=== PATIENT | female | born 1980 | race Caucasian/White ===

== ENCOUNTER 2024-07-30 09:06 | Outpatient (CLI) | payer OTHER, SELFPAY ==
--- NOTE | 2024-07-30 09:09 | MR_ITS ---
WS: [id number] MRI RIGHT KNEE NONCONTRAST TECHNIQUE: Axial PD, coronal PD fat sat, coronal PD, sagittal PD, and sagittal PD fat-sat images obta ined. CLINICAL INFORMATION: PAIN IN R KNEE COMPARISON: None. FINDINGS: Distal quadriceps and patella tendons are intact. Hypertrophic patella. Normal ACL and PCL. Mild tric ompartmental arthritis. Tiny horizontal tear in the posterior horn medial meniscus extending to the articular surface. Normal lateral meniscus. Medial and lateral collateral ligaments are intact. Moderate chondromalacia patell a. Slight chondral fissuring in the lateral patellar facet. Grade II chondromalacia medial and latera l joint compartments. Normal popliteal fossa. MR/MR knee RT wo con* [id number] IMPRESSION: 1. Small horizontal tear involving the posterior horn medial meniscus. 2. Normal ACL and PCL. 3. Medial and lateral collateral ligaments are intact. 4. Moderate chondromalacia patella with fissuring involving the lateral patell ar facet. 5. Small joint effusion. 6. No other acute findings. Outbridge grading:
== END 2024-07-30 09:07 | disposition home or self-care (01) ==
LOC: RAD 09:07
PROVIDERS: PCP Family Medicine; Visit Provider Family Medicine
DX: M23.221 Derangement of posterior horn of medial meniscus due to old tear or injury, right knee (principal); M22.41 Chondromalacia patellae, right knee
CPT/HCPCS: 73721

== ENCOUNTER 2024-10-09 16:03 | Outpatient (RCR) | payer OTHER, SELFPAY | END 2024-11-02 23:59 | disposition home or self-care (01) | LOC: SPT 16:03 | PROVIDERS: Visit Provider Physician Assistant | DX: S89.91XA Unspecified injury of right lower leg, initial encounter (principal); X58.XXXA Exposure to other specified factors, initial encounter | CPT/HCPCS: 97110; 97161 ==

== ENCOUNTER 2024-11-03 06:00 | Outpatient (RCR) | payer OTHER, SELFPAY | END 2024-11-30 23:59 | disposition home or self-care (01) | LOC: SPT 06:00 | PROVIDERS: Visit Provider Physician Assistant | DX: M25.561 Pain in right knee (principal); R26.89 Other abnormalities of gait and mobility | CPT/HCPCS: 97110 ==

== ENCOUNTER 2025-05-02 18:34 | Emergency (ER) | payer OTHER, SELFPAY ==
--- NOTE | 2025-05-02 18:38 | ECG_ITS ---
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: : 1980 Requested By: Teena Lyons Order Number: [id number] Fern MD: ANNABELLE RAHMAN Measurements Intervals [place] Rate: 82 P: 31 OR: 144 QRS: 12 QRSD: 77 T: 1 QT: 368 QTc: 432 Interpretive Statements SINUS RHYTHM POSSIBLE LEFT ATRIAL ENLARGEMENT [-0.1mV P-WAVE IN V1/V2] LOW QRS VOLTAGE IN PRECORDIAL LEADS [QRS DEFLECTION < 1.0 mV IN CHEST LEADS] SEPTAL MYOCARDIAL INFARCTION , OF INDETERMINATE AGE [40+ ms Q WAVE IN V1/V2] No previous ECG available for comparison Electronically Signed On 05-02-2025 22:17:06 CDT by ANNABELLE RAHMAN [email or web address]
[2025-05-02 18:39] VITALS: BP 156/94; PULSE 74; RESP 16; TEMP 36.7; O2SAT 99; BMI 39.1
--- NOTE | 2025-05-02 19:55 | ED_ITS ---
HPI - Chest Pain 2 General: Chief Complaint: Chest Pain Stated Complaint: chest pain, headache Time Seen by Provider: 05/02/25 19:54 History of Present Illness: 45-year-old female with a history of hyp ertension and obesity who presents emergency room with chest pain. She said about 1:00 this afternoon she started having some pressure in her left chest. A squeezing. Radiates into her left shoulder. She had a similar brief episode of this in the past but did not seek attention at that time. Said her blood pressure was slightly elevated at home. On presentation here is elevated still at 156/94. Related Data Previous Rx's ?Medication ?Instructions ?Recorded albuterol sulfate 2.5 mg/3 mL 2.5 mg (3 mL) inhalation QID PRN 10/04/21 (0.083 %) solution for nebulization shortness of breat h or wheezing #75 mL prednisone 20 mg tablet 40 mg (2 x 20 mg) PO DAILY 5 days 10/04/21 #10 tabs doxycycline hyclate 100 mg capsule 100 mg PO BID #20 c aps 04/07/22 Allergies Allergy/AdvReac Type Severity Reaction Status Date / Time Penicillins Allergy ALGY-Anaphy Verified 04/07/22 09:18 laxis Review of Systems 2 Narrative: Constitutional symptoms: Negative except as documented in HPI. Skin symptoms: Negative except as documented in HPI. Eye symptoms: Negative except as documented in HPI. ENMT symptoms: Negative except as documented in HPI. Respiratory symptoms: Negative except as documented in HPI. Cardiovascular symptoms: Negative except as documented in HPI. Gastrointestinal symptoms: Negative except as documented in HPI. Genitourinary symptoms: Negative except as documented in HPI. Musculoskeletal symptoms: Negative except as documented in HPI. Neurologic symptoms: Negative except as documented in HPI. Psychiatric symptoms: Negative except as documented in HPI. Endocrine symptoms: Negative except as documented in HPI. PFSH ED 2 PFSH: Medical History (Updated 05/02/25 @ 23:16 by Teena Vasquez MD) Recurrent UTI Chronic interstitial cystitis Surgical History Hx of dilation and curettage Hx of cholecystectomy Family History Father Healthy adult Mother Healthy adult Social History (Reviewed 04/07/22 @ 12:17 by PAWEL Sawant Smoking and tobacco/nicotine status: never used tobacco/nicotine Alcohol intake: never Substance/Drug Use: never Marital status: Current occupational status: employed Physical Exam 2 Narrative: EXAM NARRATIVE: General: Alert, no acute distress. Skin: Warm, dry. Head: Normocephalic, atraumatic. Neck: Supple, trachea midline. Eye: Extraocular movements are intact. Ears, nose, mouth and throat: mucosa moist. Cardiovascular: Regular, Normal peripheral perfusion. Respiratory: Lungs are clear to auscultation, respirations are non-labored, breath sounds are equal, Symmetrical chest wall expansion. Gastrointestinal: Soft, Nontender, Non distended Musculoskeletal: Normal ROM, no deformity. Neurological: Alert and oriented, No focal neurological deficit observed. Psychiatric: Cooperative, appropriate mood & affect. Course 2 Vital Signs: Vital signs: Vital Signs Temperature 98.0 F 05/02/25 18:39 Pulse Rate 66 05/02/25 23:00 Respiratory Rate 18 05/02/25 23:00 Blood Pressure 137/76 05/02/25 23:00 Pulse Oximetry 99 05/02/25 23:00 Oxygen Delivery Me thod Room Air 05/02/25 23:00 MDM - Chest Pain Medical Decision Making Differential diagnosis for patient with chest pain includes but is not limited to and based on the above HPI, review of systems and physical exam: Pneumonia. unstable angina. angina. Acute coronary syndrome / IA. Pulmonary embolism. Costochondritis / musculoskeletal. Pleurisy. Pericarditis. Esophageal spasm. Pancreatis. Cholecystitis. Orders placed to evaluate differential diagnosis based on the above differential, HPI and physical exam EKG: Time 183. Rate 82. Normal sinus rhythm, nonspecific ST changes, no ectopy, normal KS & QRS intervals, This was reviewed and interpreted by myself the ER physician at 1845 Chest x-ray: No acute process. No infiltrate. No pneumothorax. This was reviewed and interpreted by myself the emergency room physician. I also reviewed the radiology report. Lab Review: Laboratory results were reviewed and interpreted by myself the emergency room physician. No leukocytosis. No anemia. No renal failure. Serial troponins are negative. I reviewed the patient's medical record. Reexamination: Patient remained stable. No increased work of breathing. No altered mental status. No focal motor deficits. She tells me she does have an appointment with cardiology for tomorrow. Assessment and plan: Noncardiac chest pain - Discharged home - Discussed plan with patient. Answered any questions. - Evaluation and treatment of this problem were appropriate in the emergency setting. Lab Data 05/02/25 20:19 05/02/25 20:19 Radiology Impressions Chest X-Ray 05/02/25 20:30 IMPRESSION: No acute findings. Laboratory Results WBC 9.62 10^3/uL (3.29-11.43) 05/02/25 20:19 RBC 4.29 10^6/uL (3.85-5.65) 05/02/25 20:19 Hgb 12.80 g/dL (11.27-16.99) 05/02/25 20:19 Hct 39.1 % (36-47) 05/02/25 20:19 MCV 91.1 fl (85-98) 05/02/25 20:19 MCH 29.8 pg (27-33) 05/02/25 20:19 MCHC 32.7 g/dL (30-55) 05/02/25 20:19 RDW 12.3 % (12.1-15.1) 05/02/25 20:19 Plt Count 219 10^3/cmm (157-399) 05/02/25 20:19 MPV 11.2 fL (7.4-10.4) H 05/02/25 20:19 Neut % (Auto) 60.7 % 05/02/25 20:19 Lymph % (Auto) 31.0 % 05/02/25 20:19 [place] % (Auto) 4.8 % 05/02/25 20:19 Eos % (Auto) 2.4 % 05/02/25 20:19 Baso % (Auto) 0.7 % 05/02/25 20:19 Neut # (Auto) 5.84 10^3/uL (1.8-7.7) 05/02/25 20:19 Lymph # (Auto) 3.0 10^3/uL (0.8-4.8) 05/02/25 20:19 [place] # (Auto) 0.5 10^3/uL (0.2-0.9) 05/02/25 20:19 Eos # (Auto) 0.2 10^3/uL (0.0-0.8) 05/02/25 20:19 Baso # (Auto) 0.1 10^3/uL (0.0-0.1) 05/02/25 20:19 Nucleated RBC % (auto) 0 % 05/02/25 20:19 Nucleated RBCs # 0.0 /100WBC 05/02/25 20:19 Sodium 141 mmol/L (136-145) 05/02/25 20:19 Potassium 4.1 mmol/L (3.5-5.1) 05/02/25 20:19 Chloride 102 mmol/L (98-107) 05/02/25 20:19 Carbon Dioxide 27 mmol/L (22-29) 05/02/25 20:19 Anion Gap 16.1 (5-19) 05/02/25 20:19 BUN 14 mg/dL (6-20) 05/02/25 20:19 Creatinine 0.7 mg/dL (0.5-0.9) 05/02/25 20:19 GFR Calculation 89.7 mL/min (90-130) L 05/02/25 20:19 Glucose 93 mg/dL (65-115) 05/02/25 20:19 Calculated Osmolality 292 mOsm/kg (285-295) 05/02/25 20:19 Calcium 9.6 mg/dL (8.5-10.5) 05/02/25 20:19 Total Bilirubin 0.5 mg/dL (0.15-1.2) 05/02/25 20:19 AST 23 U/L (0-32) 05/02/25 20:19 ALT 35 U/L (0-33) H 05/02/25 20:19 Alkaline Phosphatase 120 U/L (35-105) H 05/02/25 20:19 Troponin T Baseline < 6 ng/L (0-10) 05/02/25 20:19 Troponin T 120 Minute < 6.0 ng/L (0-10) 05/02/25 22:20 Delta Troponin T 0 ABS# (0-10) 05/02/25 22:20 Total Protein 7.0 g/dL (6.6-8.7) 05/02/25 20:19 Albumin 4.4 g/dL (3.5-5.2) 05/02/25 20:19 Globulin 2.6 g/dL (1.3-4.6) 05/02/25 20:19 All radiology interpretation(s) finalized by discharge Discharge Plan Discharge Patient Disposition: Home Clinical Impression: Non-cardiac chest pain Condition: Stable Prescriptions: No Action prednisone 20 mg tablet 40 mg PO DAILY 5 Days Qty: 10 0RF albuterol sulfate 2.5 mg /3 mL (0.083 %) solution for nebulization 2.5 mg inhalation QID PRN (Reason: shortness of breath or wheezing) Qty: 75 0RF doxycycline hyclate 100 mg capsule 100 mg PO BID Qty: 20 1RF Discharge Orders: Discharge ED (Routine); Ordered 05/02/25 Ordered By: Teena Vasquez Referrals: Jered Mosquera MD [Primary Care Provider, Family Practice] Discharge Diet: Usual diet Discharge Activity: Increase activity as tolerated Patient Instructions: Noncardiac Chest Pain (ED), Opioid Safety, Pain Management, Patient Portal & Alex Instructions Activity Restrictions/Additional Instructions: Thank you for choosing [facility] for your healthcare needs today. You have been screened and evaluated and felt safe for discharge. Health conditions do change or evolve sometimes and as such it is important that you follow up with your Primary Doctor to be re checked, 3-5 days is a general good time frame for follow up. You are always welcome to return to the ED for re assessment if your symptoms are worsening or you have new concerns Print Language: Portuguese Coding Level of Care Code ED Power Shovel Operator for Caroline Villeda
[2025-05-02 20:09] VITALS: BP 146/103; PULSE 69; RESP 16; O2SAT 97
[2025-05-02 20:27] LABS: Hematocrit 39.1 % (36-47); Hemoglobin 12.80 g/dL (11.27-16.99); Mean Corpuscular HGB Conc 32.7 g/dL (30-55); Mean Corpuscular Hemoglobin 29.8 pg (27-33); Mean Corpuscular Volume 91.1 fl (85-98); Nucleated Red Blood Cells % 0 %; Platelet Count 219 10^3/cmm (157-399); Red Blood Count 4.29 10^6/uL (3.85-5.65); White Blood Count 9.62 10^3/uL (3.29-11.43)
--- NOTE | 2025-05-02 20:30 | XRR_ITS ---
PROCEDURE INFORMATION: Exam: XR Chest Exam date and time: 05/02/2025 8:58 PM Age: 45 years old Clinical indication: Pain; Chest pressure; Additional info: Chest pain TECHNIQUE: Imaging protocol: Radiologic exam of the chest. Views: 1 view. COMPARISON: CR XR chest 2V* [id number] 09/21/2022 8:25 AM FINDINGS: Lungs: Unremarkable. No consolidation. Pleural spaces: Unremarkable. No pleural effusion. No pneumothorax. Heart/Mediastinum: Unremarkable. No cardiomegaly. Bones/joints: Unremarkable. XR/XR chest 1V portable [id number] IMPRESSION: No acute findings.
[2025-05-02 20:35] VITALS: BP 149/91; PULSE 66; RESP 16; O2SAT 99
[2025-05-02 20:48] LABS: Troponin(5th) Baseline < 6 ng/L (0-10)
--- NOTE | 2025-05-02 20:51 | ECG_ITS ---
[facility] [facility] Test Date: 2025-05-02 Pat Name: Inocencia Sauceda Department: Room: Gender: Female Manager Oncology: : 1980 Requested By: Teena Lyons Order Number: [id number] Shirley MD: ANNABELLE RAHMAN Measurements Intervals [place] Rate: 64 P: 43 NC: 147 QRS: 28 QRSD: 78 T: 12 QT: 412 QTc: 425 Interpretive Statements SINUS RHYTHM LOW QRS VOLTAGE IN PRECORDIAL LEADS [QRS DEFLECTION < 1.0 mV IN CHEST LEADS] SEPTAL MYOCARDIAL INFARCTION , OF INDETERMINATE AGE [40+ ms Q WAVE IN V1/V2] Compared to ECG 05/02/2025 18:38:05 No significant changes Electronically Signed On 05-02-2025 22:20:46 CDT by ANNABELLE RAHMAN [email or web address]
[2025-05-02 20:54] LABS: Alanine Aminotransferase 35 U/L (0-33); Albumin Level 4.4 g/dL (3.5-5.2); Alkaline Phosphatase 120 U/L (35-105); Anion Gap 16.1 (5-19); Aspartate Amino Transferase 23 U/L (0-32); Blood Urea Nitrogen 14 mg/dL (6-20); Calcium 9.6 mg/dL (8.5-10.5); Carbon Dioxide 27 mmol/L (22-29); Chloride 102 mmol/L (98-107); Creatinine Clr Calc Pharmacy 129.1137; Globulin 2.6 g/dL (1.3-4.6); Glucose 93 mg/dL (65-115); Osmolality Calculated 292 mOsm/kg (285-295); Potassium 4.1 mmol/L (3.5-5.1); Sodium 141 mmol/L (136-145); Total Protein 7.0 g/dL (6.6-8.7)
[2025-05-02 21:00] VITALS: BP 163/95; PULSE 64; RESP 16; O2SAT 99
[2025-05-02 22:00] VITALS: BP 152/97; PULSE 65; RESP 16; O2SAT 97
[2025-05-02 22:55] LABS: Troponin 5 2HR < 6.0 ng/L (0-10); Troponin 5 2HR Delta 0 ABS# (0-10)
[2025-05-02 23:00] VITALS: BP 137/76; PULSE 66; RESP 18; O2SAT 99
--- OUTSIDE RECORDS SUMMARY | 2025-05-03 07:30 | XMS_ITS | Encounter Summary ---
Author Organization [facility] Address [address] [place] [address] Care Team Providers Care Reinsurance Analyst Name Role Phone Jorgito Feng MD Primary Care Provider + Encounter Details Date Type Department Care Team (Late st Contact Info) Description 09/30/2006 Outpatient Historical [facility] FY06 Milena Barrera, CAR CLEANING SUPERVISOR [address] [place] [address] Social History Tobacco Use Types Packs/Day Years Used Date Smoking Tobacco: Never Assessed Comments Unknown Sex and Gender Information Value Date Recorded Sex Assigned at Not on file Legal Sex Female 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
--- OUTSIDE RECORDS SUMMARY | 2025-05-03 07:30 | XMS_ITS | Encounter Summary ---
Author Organization [facility] Address [address] [place] [address] Care Team Providers Care Help Desk Administrator Name Role Phone Jorgito Feng MD Primary Care Provider + Encounter Details Date Type Department Care Team (Latest Contact Info) Description 08/10/2006 Outpatient Historical [facility] [address] [place] [address] Sofiya Mehta NURSE REVIEWER NO ADDRESS ON FILE Supervision of Other Normal (Primary Dx) Social History Tobacco Use Types Packs/Day Years Used Date Smoking Tobacco: Never Assessed Comments Unknown Sex and Gender Information Value Date Recorded Sex Assigned at Not on file Legal Sex Female 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
--- OUTSIDE RECORDS SUMMARY | 2025-05-03 07:30 | XMS_ITS | Encounter Summary ---
Author Organization [facility] Address [address] [place] [address] Care Team Providers Care Glazing Machine Operator Name Role Phone Jorgito Feng MD Primary Care Provider + Encounter Details Date Type Department Care Team (Latest Contact Info) Description 07/14/2006 Outpatient Historical [facility] [address] 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
--- OUTSIDE RECORDS SUMMARY | 2025-05-03 07:30 | XMS_ITS | Encounter Summary ---
Author Organization [facility] Address [address] [place] [address] Care Team Providers Care Cloth Opener Hand Name Role Phone Jorgito Feng MD Primary Care Provider + Encounter Details Date Type Department Care Team (Latest Contact Info) Description 08/16/[address] 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
--- OUTSIDE RECORDS SUMMARY | 2025-05-03 07:30 | XMS_ITS | Encounter Summary ---
Author Organization [facility] Address [address] [place] [address] Care Team Providers Care Catalog Librarian Name Role Phone Jorgito Feng MD Primary Care Provider + Encounter Details Date Type Department Care Team (Latest Contact Info) Description 06/09/2006 Outpatient Historical [facility] [address] [facility] [address] [place] [address] Jose Spears MD [address] [place] [address] Supervision of Other Normal (Primary Dx) Social History Tobacco Use Types Packs/Day Years Used Date Smoking Tobacco: Never Assessed Comments Unknown Sex and Gender Information Value Date Recorded Sex Assigned at Not on file Legal Sex Female 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
--- OUTSIDE RECORDS SUMMARY | 2025-05-03 07:30 | XMS_ITS | Encounter Summary ---
Author Organization [facility] Address [address] [place] [address] Care Team Providers Care Control Board Operator Name Role Phone Jorgito Feng MD Primary Care Provider + Encounter Details Date Type Department Care Team (Latest Contact Info) Description 06/28/2006 Outpatient Historical [facility] [address] [facility] [address] [place] [address] Jose Spears MD [address] [place] [address] Supervision of Other Normal (Primary Dx) Social History Tobacco Use Types Packs/Day Years Used Date Smoking Tobacco: Never Assessed Comments Unknown Sex and Gender Information Value Date Recorded Sex Assigned at Not on file Legal Sex Female 4:28 AM LINE PILOT Gender Identity Not on file Sexual Orientation Not on file documented as of this encounter Plan of Treatment Not on file documented as of this encounter Visit Diagnoses Diagnosis Supervision of other normal - Primary documented in this encounter Care Teams Control Board Operator Relationship Specialty Start Date End Date Jorgito Feng MD [address] [phone] PCP - General 08/23/06 documented as of this encounter
--- OUTSIDE RECORDS SUMMARY | 2025-05-03 07:30 | XMS_ITS | Clinical Summary ---
Author Organization [facility] tone Address [address] [place] [address] Care Team Providers Care Test Consultant Name Role Phone Jorgito Feng MD Primary Care Provider + Allergies Active Allergy Reactions Criticality Noted Date Comments Penicillins Rash,Swelling Low 12/18/2013 Medications metoprolol succinate ER 24 hour (TOPROL XL) 25 mg tablet Take 25 mg by mouth daily. Active nitrofurantoin (MACROBID) 100 mg capsule Take 100 mg by mouth 2 times daily. 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 Gender Identity Not on file Sexual Orientation Not on file Occupation Industry Job Start Date Job End Date Not on file Not on file Not on file Not on file Last Filed Vital Signs Vital Sign Reading Time Taken Comments Blood Pressure 144/82 03/31/2020 2:33 PM CDT Pulse - - Temperature - - Respiratory Rate - - Oxygen Saturation - - Inhaled Oxygen Concentration - - Weight 112 kg (247 lb) 03/31/2020 2:33 PM CDT Height 172.7 cm (5' 8 ) 03/31/2020 2:33 PM CDT Body Mass Index 37.56 03/31/2020 2:33 PM CDT Plan of Treatment Health Maintenance Due Date Last Done Comments DTAP/TDAP/TD VACCINES (1 - Tdap) 1997 HEPATITIS B VACCINES (1 of 3 - 19+ 3-dose series) 1997 BREAST CANCER SCREENING 02/17/2019 02/17/2018, 01/03 COLORECTAL SCREENING 2023 Colorectal Cancer Screening 2023 FIT-DNA Q 3 years 2023 FIT/FOBT Q 1 year 2023 Flex Sig/CT Colonography Q 5 years 2023 PAP SMEAR 03/31/2023 03/31/2020, 03/04, 01/03/2017, Additional history exists CERVICAL CANCER SCREENING 03/31/2025 HPV/Cotest (21-29) 03/31/2025 03/31/2020, 0 01/03/2017, 12/18/2013 HPV/Cotest (30-65) 03/31/2025 03/31/2020, 0 01/03/2017, 12/18/2013 INFLUENZA VACCINE (#1) 2025 Procedures Procedure Name Priority Date/Time Associated Diagnosis Comments CERV/VAG CYTO SCREEN PAP W/HPV Routine 03/31/2020 2:34 PM CDT Well woman exam with routine gynecological exam MAMMO DIAGNOSTIC BILATERAL W OR WO CAD Routine 02/17/2018 12:04 PM CDT Left breast lump from Last 3 Months or Most Recently Relevant to Health Maintenance Results * CERV/VAG CYTO SCREEN PAP W/HPV (03/31/2020 2:34 PM CDT) PAP INTERP See Separate Results 04/02/2020 12:28 PM CDT [facility] [employer] [facility] Genital SWAB OF ENDOCERVIX / Unknown Collection / Unknown 03/31/2020 2:34 PM CDT 04/01/2020 12:56 PM CDT us Jose Spears MD PATHOLOGY/CYTOLOGY ORDERABLE S Final Result [facility] [employer] [facility] CLIA# [id number] [address] [place], [place] [id number] * MAMMO DIAGNOSTIC BILATERAL W OR WO CAD (02/17/2018 12:04 PM CDT) Anatomical Region Laterality Modality Breast Bilateral Mammography 02/17/2018 12:0 4 PM CDT Impressions 02/17/2018 3:07 PM CDT : 4.2 cm benign cyst within the 3:00 subareolar left breast, likely corresponds to the patient's clinician's palpable lump. No specific mammographic or sonographic evidence of malignancy. BI-RADS: 2 Recommendation: Annual screening mammography Recommendation Laterality: Bilateral The patient was given a result/recommendation letter. [id number] Narrative 02/17/2018 3:07 PM CDT EXAM: MAMMO DIAGNOSTIC BILATERAL W OR WO CAD, MAMMO BREAST US LEFT LTD, 02/17/2018 12:04 PM CLINICAL HISTORY: 38-year-old woman presents for further evaluation of a lump which her clinician found in the 3:00 axis of the left breast COMPARISON: 01/03/2014 TECHNIQUE: Bilateral digital ML, MLO and CC views of the breasts were obtained. This digital mammogram was also analyzed by the Computer Aided Detection System (CAD), [employer] ImageChecker, Version 8.3. Spot compression CC and MLO views were also obtained. FINDINGS: The breasts are heterogeneously dense, which may obscure small masses. An obscured mass is present within the 3:00 axis of the left breast at anterior depth measuring up to approximately 3.0 cm. There are no other suspicious masses, calcifications, or architectural distortions. Targeted ultrasound evaluation of the left breast to follow. TECHNIQUE: Multiple real-time melendez-scale images of the left breast in the 3 o'clock axis are performed. Color Doppler was used to assess vascular flow. FINDINGS: A large simple benign cyst is present within the 3:00 subareolar left breast, measuring up to 4.2 cm. This corresponds to the mammographic finding, and likely represents the patient's clinician's palpable lump. Other scattered simple benign cysts are also incidentally noted. us Jose Spears MD MAMMO ORDERABLES Final Resul t from Last 3 Months or Most Recently Relevant to Health Maintenance Insurance [facility] [employer] OA PLUS Care Teams Test Consultant Relationship Specialty Start Date End Date Jorgito eFng MD [address] [phone] PCP - General 08/23/06
--- OUTSIDE RECORDS SUMMARY | 2025-05-03 07:30 | XMS_ITS | Encounter Summary ---
Author Organization [facility] Address [address] [place] [address] Care Team Providers Care Manager Of Selection And Assessment Name Role Phone Jorgito Feng MD Primary Care Provider + Encounter Details Date Type Department Care Team (Late st Contact Info) Description 08/23/2006 Inpatient Historical [facility] IN [facility] Jose Spears MD [address] [address] Second-Degree Perineal Laceration, with Delivery (Primary Dx) Social History Tobacco Use Types Packs/Day Years Used Date Smoking Tobacco: Never Assessed Comments Unknown Sex and Gender Information Value Date Recorded Sex Assigned at Not on file Legal Sex Female 4:28 AM YOUTH SERVICES SPECIALIST Gender Identity Not on file Sexual Orientation Not on file documented as of this encounter Plan of Treatment Not on file documented as of this encounter Procedures Procedure Name Priority Date/Time Associated Diagnosis Comments CBC WITHOUT DIFFERENTIAL Routine 08/24/2006 6:15 AM YOUTH SERVICES SPECIALIST BLOOD GAS CORD ARTERIAL Routine 08/23/2006 6:44 PM YOUTH SERVICES SPECIALIST CBC WITHOUT DIFFERENTIAL Routine 08/23/2006 10:59 AM YOUTH SERVICES SPECIALIST documented in this encounter Results * (ABNORMAL) CBC WITHOUT DIFFERENTIAL (08/24/2006 6:15 AM YOUTH SERVICES SPECIALIST) WBC 13.8(H) 4.5 - 11.0 K/ul INTERFACE SYSTEM RBC 4.29 4.20 - 5.40 Mil/ul INTERFACE SYSTEM HEMOGLOBIN 13.1 12.0 - 16.0 g/dL INTERFACE SYSTEM HEMATOCRIT 38.9 36.0 - 46.0 % INTERFACE SYSTEM MCV 90.7 84.0 - 103.0 Fl INTERFACE SYSTEM MCH 30.5 27.0 - 34.0 pg INTERFACE SYSTEM MCHC 33.7 30.0 - 35.0 g/dL INTERFACE SYSTEM RDW 13.8 11.0 - 14.5 % INTERFACE SYSTEM PLATELETS 116(L) 140 - 440 K/ul INTERFACE SYSTEM MPV 12.0 8.9 - 12.8 Fl INTERFACE SYSTEM NEUTROPHILS 75.9(H) 42.2 - 75.2 % INTERFACE SYSTEM LYMPHOCYTES 17.1(L) 24.0 - 44.0 % INTERFACE SYSTEM MONOCYTES 5.6 2.0 - 10.0 % INTERFACE SYSTEM EOSINOPHILS 1.2 0.0 - 7.0 % INTERFACE SYSTEM BASOPHILS 0.2 0.0 - 1.0 % INTERFACE SYSTEM NEUTROPHIL ABSOLUTE 10.5(H) 2.0 - 8.0 K/uL INTERFACE SYSTEM LYMPHOCYTE ABSOLUTE 2.4 1.2 - 4.0 K/ul INTERFACE SYSTEM MONOCYTE ABSOLUTE 0.8(H) 0.1 - 0.6 K/ul INTERFACE SYSTEM EOSINOPHIL ABSOLUTE 0.2 0.0 - 0.7 K/ul INTERFACE SYSTEM BASOPHILS ABSOLUTE 0.0 0.0 - 0.2 K/ul INTERFACE SYSTEM 08/24/2006 6:15 AM YOUTH SERVICES SPECIALIST us Jose Spears MD HEMATOLOGY ORDERABLES Final Result INTERFACE SYSTEM Refer to clinic/hospital department * (ABNORMAL) BLOOD GAS CORD ARTERIAL (08/23/2006 6:44 PM YOUTH SERVICES SPECIALIST) SPECIMEN DESCRIPTION Arterial INTERFACE SYSTEM Comment:Sample not collected by [facility] PH CORD ARTERIAL 7.34 7.18 - 7.38 Unit INTERFACE SYSTEM PCO2 CORD ARTERIAL 47(H) 32 - 36 mmHg INTERFACE SYSTEM PO2 CORD ARTERIAL 21 mmHg INTERFACE SYSTEM HCO3 CORD ARTERIAL 25.2 17.0 - 27.0 mmol/l INTERFACE SYSTEM BASE EXCESS CORD ARTERIAL -1 -2 - 3 mmol/l INTERFACE SYSTEM O2 SAT EST CORD ARTERIAL 31 % INTERFACE SYSTEM TCO2 CORD 27 mmol/l INTERFACE SYSTEM 08/23/2006 6:44 PM YOUTH SERVICES SPECIALIST Jose Spears MD ABG ORDERABLES Final Result INTERFACE SYSTEM Refer to clinic/hospital department * (ABNORMAL) CBC WITHOUT DIFFERENTIAL (08/23/2006 10:59 AM YOUTH SERVICES SPECIALIST) WBC 11.7(H) 4.5 - 11.0 K/ul INTERFACE SYSTEM RBC 4.29 4.20 - 5.40 Mil/ul INTERFACE SYSTEM HEMOGLOBIN 13.3 12.0 - 16.0 g/dL INTERFACE SYSTEM HEMATOCRIT 39.0 36.0 - 46.0 % INTERFACE SYSTEM MCV 90.9 84.0 - 103.0 Fl INTERFACE SYSTEM MCH 31.0 27.0 - 34.0 pg INTERFACE SYSTEM MCHC 34.1 30.0 - 35.0 g/dL INTERFACE SYSTEM RDW 14.0 11.0 - 14.5 % INTERFACE SYSTEM PLATELETS 145 140 - 440 K/ul INTERFACE SYSTEM MPV 11.8 8.9 - 12.8 Fl INTERFACE SYSTEM NEUTROPHILS 77.9(H) 42.2 - 75.2 % INTERFACE SYSTEM LYMPHOCYTES 17.3(L) 24.0 - 44.0 % INTERFACE SYSTEM MONOCYTES 4.1 2.0 - 10.0 % INTERFACE SYSTEM EOSINOPHILS 0.6 0.0 - 7.0 % INTERFACE SYSTEM BASOPHILS 0.1 0.0 - 1.0 % INTERFACE SYSTEM NEUTROPHIL ABSOLUTE 9.1(H) 2.0 - 8.0 K/uL INTERFACE SYSTEM LYMPHOCYTE ABSOLUTE 2.0 1.2 - 4.0 K/ul INTERFACE SYSTEM MONOCYTE ABSOLUTE 0.5 0.1 - 0.6 K/ul INTERFACE SYSTEM EOSINOPHIL ABSOLUTE 0.1 0.0 - 0.7 K/ul INTERFACE SYSTEM BASOPHILS ABSOLUTE 0.0 0.0 - 0.2 K/ul INTERFACE SYSTEM 08/23/2006 10:5 9 AM YOUTH SERVICES SPECIALIST Jose Spears MD HEMATOLOGY ORDERABLES Final Result INTERFACE SYSTEM Refer to clinic/hospital department documented in this encounter Visit Diagnoses Diagnosis Second-degree perineal laceration, with delivery- Primary documented in this encounter Care Teams Manager Of Selection And Assessment Relationship Specialty Start Date End Date Jorgito Feng MD [address] [phone] PCP - General 08/23/06 documented as of this encounter
--- OUTSIDE RECORDS SUMMARY | 2025-05-03 07:30 | XMS_ITS | Encounter Summary ---
Author Organization [facility] Address [address] [place] [address] Care Team Providers Care Health Promoter Name Role Phone Jorgito Feng MD Primary Care Provider + Encounter Details Date Type Department Care Team (Latest Contact Info) Description 08/02/2006 Outpatient Historical [facility] [address] [facility] [address] [place] [address] Jose Spears MD [address] [place] [address] Supervision of Other Normal (Primary Dx) Social History Tobacco Use Types Packs/Day Years Used Date Smoking Tobacco: Never Assessed Comments Unknown Sex and Gender Information Value Date Recorded Sex Assigned at Not on file Legal Sex Female 4:28 AM SUPERVISOR SEWING ROOM Gender Identity Not on file Sexual Orientation Not on file documented as of this encounter Plan of Treatment Not on file documented as of this encounter Visit Diagnoses Diagnosis Supervision of other normal - Primary documented in this encounter Care Teams Health Promoter Relationship Specialty Start Date End Date Jorgito Feng MD [address] [phone] PCP - General 08/23/06 documented as of this encounter
--- OUTSIDE RECORDS SUMMARY | 2025-05-03 07:30 | XMS_ITS | Encounter Summary ---
Author Organization [facility] Address [address] [place] [address] Care Team Providers Care Theater Teacher Name Role Phone Jorgito Feng MD Primary Care Provider + Encounter Details Date Type Department Care Team (Latest Contact Info) Description 09/30/2006 Outpatient Historical [facility] OBGYN-[address] [place] [address] Jose Spears MD 1967 [facility] [address] [place] [address] Routine Follow-Up (Primary Dx); General Counseling for Prescription of Oral Contraceptives Social History Tobacco Use Types Packs/Day Years Used Date Smoking Tobacco: Never Assessed Comments Unknown Sex and Gender Information Value Date Recorded Sex Assigned at Not on file Legal Sex Female 4:[address] Gender Identity Not on file Sexual Orientation Not on file documented as of this encounter Plan of Treatment Not on file documented as of this encounter Visit Diagnoses Diagnosis Routine follow-up- Primary General counseling for prescription of oral contraceptives documented in this encounter Care Teams Theater Teacher Relationship Specialty Start Date End Date Jorgito Feng MD [address] [phone] PCP - General 08/23/06 documented as of this encounter
--- OUTSIDE RECORDS SUMMARY | 2025-05-03 07:30 | XMS_ITS | Encounter Summary ---
Author Organization [facility] Address [address] [place] [address] Care Team Providers Care Cooking Teacher Name Role Phone Jorgito Feng MD Primary Care Provider + Encounter Details Date Type Department Care Team (Latest Contact Info) Description 08/23/2006 Outpatient Historical [facility] OBGYN-[address] [place] [address] Jose Spears MD 1967 [facility] [address] [place] [address] Normal Delivery (Primary Dx); Outcome of Delivery, Single Liveborn Social History Tobacco Use Types Packs/Day Years Used Date Smoking Tobacco: Never Assessed Comments Unknown Sex and Gender Information Value Date Recorded Sex Assigned at Not on file Legal Sex Female 4:28 AM TRUCK PACKER Gender Identity Not on file Sexual Orientation Not on file documented as of this encounter Plan of Treatment Not on file documented as of this encounter Visit Diagnoses Diagnosis Normal delivery- Primary Outcome of delivery, single liveborn documented in this encounter Care Teams Cooking Teacher Relationship Specialty Start Date End Date Jorgito Feng MD [address] [phone] PCP - General 08/23/06 documented as of this encounter
--- OUTSIDE RECORDS SUMMARY | 2025-05-03 07:31 | XMS_ITS | Encounter Summary ---
Author Organization [facility] Address [address] [place] [address] Care Team Providers Care Line Installer Trolley Name Role Phone Jorgito Feng MD Primary Care Provider + Encounter Details Date Type Department Care Team (Latest Contact Info) Description 05/06/2006 Outpatient Historical [facility] [address] [facility] [address] [place] [address] Jose Spears MD [address] [place] [address] Supervision of Other Normal (Primary Dx) Social History Tobacco Use Types Packs/Day Years Used Date Smoking Tobacco: Never Assessed Comments Unknown Sex and Gender Information Value Date Recorded Sex Assigned at Not on file Legal Sex Female 4:28 AM PROGRAM MANAGEMENT ANALYST Gender Identity Not on file Sexual Orientation Not on file documented as of this encounter Plan of Treatment Not on file documented as of this encounter Visit Diagnoses Diagnosis Supervision of other normal - Primary documented in this encounter Care Teams Line Installer Trolley Relationship Specialty Start Date End Date Jorgito Feng MD [address] [phone] PCP - General 08/23/06 documented as of this encounter
--- OUTSIDE RECORDS SUMMARY | 2025-05-03 07:31 | XMS_ITS | Encounter Summary ---
Author Organization [facility] Address [address] [place] [address] Care Team Providers Care Electorate Officer Name Role Phone Jorgito Feng MD Primary Care Provider + Encounter Details Date Type Department Care Team (Latest Contact Info) Description 03/08/2006 Outpatient Historical [facility] [address] [facility] [address] [place] [address] Jose Spears MD [address] [place] [address] Supervision of Other Normal (Primary Dx) Social History Tobacco Use Types Packs/Day Years Used Date Smoking Tobacco: Never Assessed Comments Unknown Sex and Gender Information Value Date Recorded Sex Assigned at Not on file Legal Sex Female 4:28 AM DEVIL DOG Gender Identity Not on file Sexual Orientation Not on file documented as of this encounter Plan of Treatment Not on file documented as of this encounter Visit Diagnoses Diagnosis Supervision of other normal - Primary documented in this encounter Care Teams Electorate Officer Relationship Specialty Start Date End Date Jorgito Feng MD [address] [phone] PCP - General 08/23/06 documented as of this encounter
--- OUTSIDE RECORDS SUMMARY | 2025-05-03 07:31 | XMS_ITS | Encounter Summary ---
Author Organization [facility] Address [address] [place] [address] Care Team Providers Care Manager Of Compliance Name Role Phone Jorgito Feng MD Primary Care Provider + Encounter Details Date Type Department Care Team (Late Contact Info) Description 02/03/2006 Outpatient Historical [facility] FY06 Jose Spears MD [address] [address] Social History Tobacco Use Types Packs/Day Years Used Date Smoking Tobacco: Never Assessed Comments Unknown Sex and Gender Information Value Date Recorded Sex Assigned at Not on file Legal Sex Female 4:28 AM ELECTROMECHANICAL ENGINEER Gender Identity Not on file Sexual Orientation Not on file documented as of this encounter Plan of Treatment Not on file documented as of this encounter Visit Diagnoses Not on filedocumented in this encounter Care Teams Manager Of Compliance Relationship Specialty Start Date End Date Jorgito Feng MD [address] [phone] PCP - General 08/23/06 documented as of this encounter
--- OUTSIDE RECORDS SUMMARY | 2025-05-03 07:31 | XMS_ITS | Encounter Summary ---
Author Organization [facility] Address [address] [place] [address] Care Team Providers Care Food Service Worker Name Role Phone Jorgito Feng MD Primary Care Provider + Encounter Details Date Type Department Care Team (Latest Contact Info) Description 04/12/2006 Outpatient Historical [facility] [address] [facility] [address] [place] [address] Jose Spears MD [address] [place] [address] Supervision of Other Normal (Primary Dx) Social History Tobacco Use Types Packs/Day Years Used Date Smoking Tobacco: Never Assessed Comments Unknown Sex and Gender Information Value Date Recorded Sex Assigned at Not on file Legal Sex Female 4:28 AM MACHINE III COREMAKER Gender Identity Not on file Sexual Orientation Not on file documented as of this encounter Plan of Treatment Not on file documented as of this encounter Visit Diagnoses Diagnosis Supervision of other normal - Primary documented in this encounter Care Teams Food Service Worker Relationship Specialty Start Date End Date Jorgiot Feng MD [address] [phone] PCP - General 08/23/06 documented as of this encounter
--- OUTSIDE RECORDS SUMMARY | 2025-05-03 07:31 | XMS_ITS | Encounter Summary ---
Author Organization [facility] Address [address] [place] [address] Care Team Providers Care Grinder Tender Name Role Phone Jorgito Feng MD Primary Care Provider + Encounter Details Date Type Department Care Team (Latest Contact Info) Description 02/03/2006 Outpatient Historical [facility] [address] [facility] [address] [place] [address] Jose Spears MD [address] [place] [address] Supervision of Other Normal (Primary Dx) Social History Tobacco Use Types Packs/Day Years Used Date Smoking Tobacco: Never Assessed Comments Unknown Sex and Gender Information Value Date Recorded Sex Assigned at Not on file Legal Sex Female 4:28 AM PRODUCTION MECHANIC TIN CANS Gender Identity Not on file Sexual Orientation Not on file documented as of this encounter Plan of Treatment Not on file documented as of this encounter Visit Diagnoses Diagnosis Supervision of other normal - Primary documented in this encounter Care Teams Grinder Tender Relationship Specialty Start Date End Date Jorgito Feng MD [address] [phone] PCP - General 08/23/06 documented as of this encounter
--- OUTSIDE RECORDS SUMMARY | 2025-05-03 07:31 | XMS_ITS | Encounter Summary ---
Author Organization [facility] Address [address] [place] [address] Care Team Providers Care Stock Order Lister Name Role Phone Jorgito Feng MD Primary Care Provider + Encounter Details Date Type Department Care Team (Latest Contact Info) Description 01/06/2004 Outpatient Historical [facility] [address]ks [address] [place] [address] Caio Maurice MD NO ADDRESS ON FILE PED PRE- VISIT FOR MOTHER (Primary Dx) Social History Tobacco Use Types Packs/Day Years Used Date Smoking Tobacco: Never Assessed Comments Unknown Sex and Gender Information Value Date Recorded Sex Assigned at Not on file Legal Sex Female 4:28 AM LIVESTOCK LABORER Gender Identity Not on file Sexual Orientation Not on file documented as of this encounter Plan of Treatment Not on file documented as of this encounter Visit Diagnoses Diagnosis Pediatric pre- visit for expectant parent(s)- Primary documented in this encounter Care Teams Stock Order Lister Relationship Specialty Start Date End Date Jorgito Feng MD [address] [phone] PCP - General 08/23/06 documented as of this encounter
--- OUTSIDE RECORDS SUMMARY | 2025-05-03 07:31 | XMS_ITS | Clinical Summary ---
Author Organization [facility] Address [address] Barrera: [place] [address] Care Team Providers Care Bottle Tester Name Role Phone Jorgito Feng MD Primary Care Provider + Allergies Active Allergy Reactions Criticality Noted Date Comments Penicillins Rash,Swelling Low 12/18/2013 Medications Irbesartan (AVAPRO) 75 mg tablet Take 75 mg by mouth daily at bedtime. Active metoprolol tartrate (LOPRESSOR) 25 mg tablet Take 25 mg by mouth 2 times daily. Active Active Problems Problem Noted Date Diagnosed Date Family history of malignant neoplasm of endometr ium 04/13/2021 Resolved Problems Problem Noted Date Diagnosed Date Resolved Date Irregular menstrual cycle 07/18/2012 Encounters Date Type Department Care Team Description 04/17/2025 External Device Data ST[facility] ABSTRACTION Provider, Abstract 04/16/2025 External Device Data ST[facility] ABSTRACTION Provider, Abstract 03/19/2025 External Device Data ST[facility] ABSTRACTION Provider, Abstract 03/05/2025 External Device Data ST[facility] ABSTRACTION Provider, Abstract 02/21/2025 External Device Data STL ABSTRACTION Provider, Abstract 02/20/2025 External Device Data STL ABSTRACTION Provider, Abstract 02/19/2025 External Device Data STL ABSTRACTION Provider, Abstract from Last 3 Months Family History Medical History Relation Name Comments Breast Cancer Neg Hx Cancer - Other Neg Hx Melanoma Neg Hx Ovarian Cancer Neg Hx Pancreatic Cancer Neg Hx Uterine or Endometrial Cancer, Not Including Cervical Neg Hx Social History Tobacco Use Types Packs/Day Years Used Date Smoking Tobacco: Never Smokeless Tobacco: Never Tobacco Cessation:Counseling Given: Not Answered Alcohol Use Standard Drinks/Week Comments No 0 (1 standard drink = 0.6 oz pur e alcohol) Comments No Sex and Gender Information Value Date Recorded Sex Assigned at Not on file Legal Sex Female 4:13 PM CANE WEIGHER HELPER Gender Identity Not on file Sexual Orientation Straight 10/05/2024 11 :34 AM CANE WEIGHER HELPER Last Filed Vital Signs Vital Sign Reading Time Taken Comments Blood Pressure 144/86 04/30/2024 1:32 PM CDT Pulse - - Temperature - - Respiratory Rate - - Oxygen Saturation - - Inhaled Oxygen Concentration - - Weight 113.4 kg (250 lb) 04/30/2024 1:32 PM CDT Height 170.2 cm (5' 7 ) 04/30/2024 1:32 PM CDT Body Mass Index 39.16 04/30/2024 1:32 PM CDT Plan of Treatment Upcoming Encounters Date Type Department Care Team (Late st Contact Info) Description 06/18/2025 1:45 PM CDT Office Visit [address] [place] [address] Jose Spears MD [address] [facility] [address] [place] [address] Health Maintenance Due Date Last Done Comments Pre-Diabetes and Diabetes Screening 1980 DTAP/TDAP/TD VACCINES (1 - Tdap) 1997 HEPATITIS B VACCINES (1 of 3 - 19+ 3-dose series) 1997 COLORECTAL SCREENING 2023 Colorectal Cancer Screening 2023 FIT-DNA Q 3 years 2023 FIT/FOBT Q 1 year 2023 Flex Sig/CT Colonography Q 5 years 2023 BREAST CANCER SCREENING 10/20/2024 10/20/19 24, 02/17/2018, 02/17/2018, Additional history exists PAP SMEAR 04/19/2025 04/19/2022, 03/04, 03/31/2020, Additional history exists INFLUENZA VACCINE (#1) 2025 3, 06/24/2021, 06/19/2020, Additional history exists CERVICAL CANCER SCREENING 04/19/2027 HPV/Cotest (21-29) 04/19/2027 04/19/2022, 0 03/31/2020, 03/31/2020, Additional history exists HPV/Cotest (30-65) 04/19/2027 04/19/2022, 0 03/31/2020, 03/31/2020, Additional history exists Procedures Procedure Name Priority Date/Time Associated Diagnosis Comments MAMMO 3D FABBY SCREEN BILAT W OR WO CAD Routine 10/20/2023 11:46 AM CANE WEIGHER HELPER Screening mammogram for breast cancer CERV/VAG CYTO SCREEN PAP W/HPV Routine 04/19/2022 1:39 PM CDT Well woman exam with routine gynecological exam from Last 3 Months or Most Recently Relevant to Health Maintenance Results * MAMMO SCRN BILAT 3D FABBY W OR WO CAD (10/20/2023 11:46 AM CANE WEIGHER HELPER) Anatomical Region Laterality Modality Breast Bilateral Mammography Impressions 10/25/2023 2:59 PM CANE WEIGHER HELPER : No mammographic evidence of malignancy. BI-RADS ASSESSMENT: 1 - Negative RECOMMENDATION: Routine annual screening mammography. Narrative 10/25/2023 2:59 PM CANE WEIGHER HELPER EXAM: MAMMO SCRN BILAT 3D FABBY W OR WO CAD INDICATION: Screening COMPARISON: 02/17/2018 MAMMO DIAGNOSTIC BILATERAL W OR WO CAD BREAST COMPOSITION: The breasts are heterogeneously dense, which may obscure small masses. FINDINGS: RIGHT BREAST: There are no suspicious masses, calcifications, or areas of architectural distortion. LEFT BREAST: There are no suspicious masses, calcifications, or areas of architectural distortion. Jose Spears MD MAMMO ORDERABLES Final Resul t * CERV/VAG CYTO SCREEN PAP W/HPV (04/19/2022 1:39 PM CDT) CLINICAL INFORMATION [facility] [place] Comment:Information not prov ided LAST MENSTRUAL PERIOD [facility] [place] Comment:INFORMATION NOT PROV IDED PREV PAP: [facility] [place] Comment:03/31/2020 NIL PREV BX: [facility] [place] Comment:INFORMATION NOT PROV IDED SOURCE [facility] Comment:Endocervix ADEQUACY: [facility] Comment: Satisfactory for evaluation. Endocervical/transformation zone component present. Age and/or menstrual status not provided PAP INTERP [facility] Comment:Negative for intraep ithelial lesion or malignancy. COMMENT (PAP TEST) Q uest [facility] [place] Comment: This Pap test has been evaluated with computer assisted technology. ASPNET DEVELOPER: Karina est [employer]anyell [place] Comment: IRINEODENNIS(ASCP) CT screening location: [place] [address] [place] [address] EXPLANATORY NOTE [facility] [place] Comment: EXPLANATORY NOTE: The Pap is a screening test for cervical cancer. It is not a diagnostic test and is subject to false negative and false positive results. It is most reliable when a satisfactory sample, regularly obtained, is submitted with relevant clinical findings and history, and when the Pap result is evaluated along with historic and current clinical information. HPV E6/E7 Not Detected Not Detected [facility] Comment: Methodology: Manager Of Housekeeping-Mediated Amplification This assay detects E6/E7 viral messenger RNA (mRNA) from 14 high-risk HPV types (16,18,31,33,35,39,45,51,52,56,58,59,66,68). Cervical sources are required for HPV testing. If a vaginal source from a patient who has had a total hysterectomy with removal of cervix was submitted, please contact the testing laboratory for alternative testing options. For additional information, please refer to http://education.Retewi/faq/NGP219s7 (This link if provided for information/ educational purposes only.) Test Performed at: [facility] [address] [place] [address] Brenton Morgan D.O., MPH SL Genital SWAB OF ENDOCERVIX / Unknown 04/19/2022 1:39 PM CDT 04/20/2022 12:21 PM CDT us Jose Spears MD PATHOLOGY/CYTOLOGY ORDERABLE S Final Result [facility] [phone] [facility] [address] [place] [address] from Last 3 Months or Most Recently Relevant to Health Maintenance Insurance [employer] OPEN ACCESS O Care Teams Bottle Tester Relationship Specialty Start Date End Date Jorgito Feng MD [address] [address] PCP - General 08/23/06
--- OUTSIDE RECORDS SUMMARY | 2025-05-03 07:31 | XMS_ITS | Encounter Summary ---
Author Organization [facility] Address [address] [place] [address] Care Team Providers Care Foundry Manager Name Role Phone Jorgito Feng MD Primary Care Provider + Encounter Details Date Type Department Care Team (Latest Contact Info) Description 04/12/2006 Outpatient [facility] Maternal and Medicine-[facility] ruelas [address] [place] [address] Aaron Andre II, MD [address] [place] [address] Screening for Malformation Using Ultrasonics (Primary Dx) Social History Tobacco Use Types Packs/Day Years Used Date Smoking Tobacco: Never Assessed Comments Unknown Sex and Gender Information Value Date Recorded Sex Assigned at Not on file Legal Sex Female 4:28 AM CONFERENCE DIRECTOR Gender Identity Not on file Sexual Orientation Not on file documented as of this encounter Plan of Treatment Not on file documented as of this encounter Visit Diagnoses Diagnosis Encounter for routine screening for malformation using ultrasonics- Primary documented in this encounter Care Teams Foundry Manager Relationship Specialty Start Date End Date Jorgito Feng MD [address] [address] PCP - General 08/23/06 documented as of this encounter
--- OUTSIDE RECORDS SUMMARY | 2025-05-03 07:31 | XMS_ITS | Encounter Summary ---
Author Organization [facility] Address [address] [place] [address] Care Team Providers Care Commercial Makeup Artist Name Role Phone Jorgito Feng MD Primary Care Provider + Reason for Referral * Outpatient Services (Routine) - Closed Specialty Diagnoses / Procedures Referred By Contac t Referred To Contact Diagnoses Left breast lump Procedures MAMMO BREAST US LEFT LTD Jose Spears MD [address] [address] Phone: tel: fax: [facility] Pre-Registration [place] CALL TO MAKE APPOINTMENT ONLY [address] [place] [address] Phone: tel: fax: Referral ID Status Reason Start Date Expiration Date Visits Requested Visits Authorized [id number] Closed Performing Department To Schedule (SGF) 01/10/2018 02/10/2019 1 1 * Outpatient Services (Routine) - Closed Specialty Diagnoses / Procedures Referred By Contac t Referred To Contact Radiology Diagnoses Left breast lump Procedures MAMMO DIAGNOSTIC BILATERAL W OR WO CAD MAMMO DIAGNOSTIC UNI LEFT W OR WO CAD Jose Spears MD [address] [facility] [address] [place] [address] Phone: tel: fax: [facility] [address] [facility] [address] [place] [address] Phone: tel: fax: Referral ID Status Reason Start Date Expiration Date V isits Requested Visits Authorized [id number] Closed SGF [facility] TO SCHEDULE (SGF) 01/10/2018 02/09/2019 1 1 Encounter Details Date Type Department Care Team (Late st Contact Info) Description 01/10/2018 Ancillary Orders [facility] [address] [facility] [address] [place] [address] Jose Spears MD [address] [facility] [address] [place] [address] Left breast lump Social History Tobacco Use Types Packs/Day Years Used Date Smoking Tobacco: Never Alcohol Use Standard Drinks/Week Comments No 0 (1 standard drink = 0.6 oz pur e alcohol) Comments No Sex and Gender Information Value Date Recorded Sex Assigned at Not on file 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 No specific mammographic or sonographic evidence of malignancy. BI-RADS: 2 Recommendation: Annual screening mammography Recommendation Laterality: Bilateral The patient was given a result/recommendation letter. [id number] Narrative 02/17/2018 3:07 PM CDT EXAM: MAMMO [...] by the Computer Aided Detection System (CAD), PriceAreacker, Version 8.3. Spot compression CC and MLO [...] MD MAMMO ORDERABLES Final Resul t * MAMMO DIAGNOSTIC BILATERAL W OR WO [...] The patient was given a result/recommendation letter. [id number] Narrative 02/17/2018 3:07 PM CDT EXAM: MAMMO [...] by the Computer Aided Detection System (CAD), Coraid, Version 8.3. Spot compression CC and MLO [...] Spears MD MAMMO ORDERABLES Final Resul t documented in this encounter Visit Diagnoses Diagnosis Left breast lump Lump or mass in breast Left breast lump Lump or mass in breast Left breast lump Lump or mass in breast documented in this encounter Care Teams Commercial Makeup Artist Relationship Specialty Start Date End Date Jorgito Feng MD [address] [address] PCP - General 08/23/06 documented as of this encounter
--- OUTSIDE RECORDS SUMMARY | 2025-05-03 07:31 | XMS_ITS | Encounter Summary ---
Author Organization [facility] Address [address] [place] [address] Care Team Providers Care Global Ceo Name Role Phone Jorgito Feng MD Primary Care Provider + Encounter Details Date Type Department Care Team (Latest Contact Info) Description 01/25/[address] 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
== END 2025-05-02 23:33 | disposition home or self-care (01) ==
PROVIDERS: Emergency Provider Emergency Medicine; PCP Family Medicine
DX: R07.89 Other chest pain (principal)
CPT/HCPCS: 36415; 71045; 80053; 84484; 85025; 93005; 99285

== ENCOUNTER 2025-05-17 12:33 | Outpatient (CLI) | payer OTHER, SELFPAY ==
--- NOTE | 2025-05-17 | ECG_ITS ---
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 Interpretive Statements EXERCISE STRESS TEST EXERCISE DATA: The patient was exercised by Jorgito protocol. Baseline heart rate was 75 beats per minute. Baseline blood pressure was 139/94 millimeters of mercury. Maximal predicted heart rate was 173 beats per minute. Maximum heart rate achieved was 169 which was 97% of the maximum predicted heart rate. Maximum blood pressure was 195/62 millimeters of mercury. Total exercise time was 6 minutes and 46 seconds. Maximum METs achieved was 10.2. The reason for ending the test was maximal effort achieved. The patient complained of shortness of breath during the stress test, which then resolved at the end of the test. ELECTROCARDIOGRAM: BASELINE: Showed sinus rhythm, normal axis, septal leads q waves, no significant ST-T changes at the baseline noted. [] EXERCISE: At the peak exercise level, []significant 2-3mm ST depressions are seen in the inferior and anterolateral leads. RECOVERY: During the recovery period, heart rate dropped appropriately. No significant ST-T changes in the recovery suggestive of ischemia noted. [] CONCLUSION: 1. Exercise capacity is good. 2. Heart rate response was appropriate 3. Blood pressure response was appropriate 4. Symptoms not suggestive of ischemia. 5. Stress test is abnormal and indicative of ischemia with significant ST depressions seen in inferior and anterolateral leads. Electronically Signed On 05-19-2025 22:45:08 CDT by Shan Schrader M.D. [email or web address]
[2025-05-17 13:15] VITALS: BMI 39.1
[2025-05-17 13:17] VITALS: BP 153/50; PULSE 96
--- NOTE | 2025-05-17 15:45 | USCV_ITS ---
Inocencia Sauceda Age: 45 Gender: F : 1980 Exam Date: 05/17/2025 16:09 Ordering Phys: Joe Stone MD ([email or web address]) Technologist: Anam Valencia Exam Location: [facility] [place] [facility] Indication: CHEST PAIN BP: 124 / 64 HR: 74 Rhythm: Sinus Technical Quality: Adequate MEASUREMENTS (Male / Female) Normal Values 2D ECHO LV Diastolic Diameter PLAX 5.1 cm 4.2 - 5.9 / 3.9 - 5.3 cm IVS Diastolic Thickness 0.9 cm 0.6 - 1.0 / 0.6 - 0.9 cm IVS Systolic Thickness 1.4 cm LVPW Diastolic Thickness 1.0 cm 0.6 - 1.0 / 0.6 - 0.9 cm LVPW Systolic Thickness 1.6 cm LVOT Diameter 2.0 cm LV Ejection Fraction 2D Teich 68.7 % LV Ejection Fraction MOD 4C 77.2 % LV Ejection Fraction MOD 2C 71.8 % LV Ejection Fraction 2C AL 73.2 % LA Diameter 3.2 cm RA Systolic Volume 4C AL 65.6 ml RA Systolic Volume 4C MOD 61.5 ml LA Sys Volume AL 44.9 cm cubed LA Sys Volume Index AL 18.9 cm cubed/m squared Aorta at Sinotubular Diameter 2.0 cm IVC Diameter 1.9 cm M-MODE LA Ao Ratio MM 1.6 AV Cusp Separation MM 1.0 cm DOPPLER AV Peak Velocity 196.0 cm/s LVOT Peak Velocity 135.0 cm/s AV Area Cont Eq vti 2.0 cm squared AV Area Cont Eq pk 2.2 cm squared MV Peak Velocity 147.0 cm/s MV Area PHT 4.8 cm squared Mitral E to A Ratio 0.7 TR Peak Velocity 293.0 cm/s TR Peak Gradient 34.3 mmHg TR Mean Velocity 215.0 cm/s TR Mean Gradient 21.2 mmHg TR Velocity Time Integral 74.4 cm PV Peak Velocity 108.3 cm/s RV Ejection Time 0.3 s FINDINGS Left Ventricle Normal left ventricular size and systolic function, EF 72% . Normal left ventricular wall thickness. Normal diastolic function. Right Ventricle Normal right ventricular size and systolic function. Right Atrium Normal right atrial size. Left Atrium Normal left atrial size. Mitral Valve Structurally normal mitral valve. No mitral valve stenosis. Mild mitral valve regurgitation. Aortic Valve No aortic valve stenosis. No aortic valve regurgitation. Tricuspid Valve Trace tricuspid valve regurgitation. No tricuspid valve stenosis. Structurally normal tricuspid valve. Normal pulmonary pressure. Pulmonic Valve Structurally normal pulmonic valve. No pulmonary valve stenosis. No pulmonary valve regurgitation. Pericardium Small circumferential pericardial effusion. No echocardiogram evidence of tamponade Aorta Normal size aortic root and proximal ascending aorta. IVC Normal inferior vena cava. CONCLUSIONS 1. Normal biventricular size and systolic function 2. Small circumferential pericardial effusion without echocardiogram evidence of tamponade. 3. Mild mitral valve regurgitation Joe Stone MD, FACC (Electronically Signed) Final Date: 18 May 2025 14:36 S
== END 2025-05-17 12:34 | disposition home or self-care (01) ==
PROVIDERS: PCP Family Medicine; Visit Provider Internal Medicine Cardiovascular Disease
DX: R07.9 Chest pain, unspecified (principal); R07.89 Other chest pain; I49.8 Other specified cardiac arrhythmias; R06.02 Shortness of breath; I31.39 Other pericardial effusion (noninflammatory); I34.0 Nonrheumatic mitral (valve) insufficiency
CPT/HCPCS: 93017; 93306

== ENCOUNTER 2025-06-04 13:17 | Outpatient (CLI) | payer OTHER, SELFPAY ==
--- NOTE | 2025-06-04 13:20 | MM_ITS ---
WS: [id number] BILATERAL 3D TOMOSYNTHESIS DIGITAL SCREENING MAMMOGRAPHY WITH CAD CLINICAL INFORMATION: SCREENING HISTORY: Screening mammogram. No current complaints. COMPARISON: 2023 TECHNIQUE: Bilateral CC and MLO views. FINDINGS: The breasts are composed of heterogeneous fibroglandular density tissue, which can limit the detection of small underlying mass lesions. No suspicious mass, asymmetry, calcifications, or architectural distortion. No evidence of malignancy. Stable nodular LEFT breast tissue. MM/MM [facility] tomosynthesis [id number] IMPRESSION: DENSITY: The breasts are heterogeneously dense, which may obscure small masses. BI-RADS: 2 - Benign FOLLOW UP: 1 Year Follow-up Recommend return to annual screening mammography.
== END 2025-06-04 13:18 | disposition home or self-care (01) ==
LOC: MOBLMAM 13:18
PROVIDERS: PCP Family Medicine; Visit Provider Family Medicine
DX: Z12.31 Encounter for screening mammogram for malignant neoplasm of breast (principal); R92.333 Mammographic heterogeneous density, bilateral breasts
CPT/HCPCS: 77063; 77067